=== PATIENT | male | born 1965 | race Caucasian/White ===

== ENCOUNTER 2019-12-28 19:56 | Emergency (ER) | payer BC, OTHER ==
[2019-12-28] MEDS: GI Cocktail Oral Solution 30 ML PO ONE (20:06)
[2019-12-28] MEDS: cloNIDine 0.1 MG Tab PO ONE (20:06)
[2019-12-28 20:43] LABS: CHLORIDE,CL 105 mmol/L (98-107); SODIUM,NA 141 mmol/L (136-145)
--- NOTE | 2019-12-28 21:14 | EDM.PDOC ---
ED HPI GENERAL MEDICAL PROBLEM - General Chief Complaint: General Stated Complaint: indigestion, HTN Time Seen by Provider: 12/28/19 20:00 Source of Information: Reports: Patient History Limitations: Reports: No Limitations - History of Present Illness INITIAL COMMENTS - FREE TEXT/NARRATIVE: Pt presents to ER with elevated BP and heartburn symptoms BP was 180/120 earlier Did take a second dose of Lisinopril No chest pain No SOB No cough No fever Onset: Gradual Duration: Day(s): Location: Reports: Chest Quality: Reports: Dull, Pressure Upper Epigastric Pain Score (Numeric/FACES): 4 - Related Data Allergies Allergy/AdvReac Type Severity Reaction Status Date / Time No Known Allergies Allergy Verified 12/28/19 20:06 Home Meds: Home Meds Lisinopril 20 mg PO DAILY 01/30/18 [History] Past Medical History Cardiovascular History: Reports: Hypertension Social & Family History - Tobacco Use Smoking Status *Q: Never Smoker Second Hand Smoke Exposure: No - Caffeine Use Caffeine Use: Reports: None - Recreational Drug Use Recreational Drug Use: No ED ROS GENERAL - Review of Systems Review Of Systems: See Below Constitutional: Reports: No Symptoms Respiratory: Reports: No Symptoms Cardiovascular: Reports: Chest Pain Musculoskeletal: Reports: No Symptoms ED EXAM, GENERAL - Physical Exam Exam: See Below Exam Limited By: No Limitations General Appearance: Alert, WD/WN, No Apparent Distress Neck: Supple Respiratory/Chest: Lungs Clear Cardiovascular: Regular Rate, Rhythm GI/Abdominal: Non-Tender EKG INTERPRETATION Rhythm: NSR Course - Vital Signs Last Recorded V/S: Last Vital Signs Temp 97.6 F 12/28/19 20:07 Pulse 86 12/28/19 20:07 Resp 12 12/28/19 20:07 BP 155/97 H 12/28/19 20:47 Pulse Ox 100 12/28/19 20:07 - Orders/Labs/Meds Orders: Active Orders 24 hr Category Date Time Status EKG Documentation Completion [RC] ASDIRECTED Care 12/28/19 20:51 Active EKG 12 Lead [EK] Stat Ther 12/28/19 20:51 Ordered Labs: Laboratory Tests 12/28/19 12/28/19 Range/Units 20:10 20:15 WBC 6.3 (4.0-10.2) K/uL RBC 4.66 (4.33-5.41) M/uL Hgb 14.4 (13.1-16.8) g/dL Hct 41.9 (39.0-49.0) % MCV 89.9 (84.0-98.0) fL MCH 30.9 (28.2-33.3) pg MCHC 34.4 (31.7-36.0) g/dL RDW 12.1 (11.2-14.1) % Plt Count 223 (150-350) K/uL Neut % (Auto) 58.2 (45.0-80.0) % Lymph % (Auto) 30.5 (10.0-50.0) % Angelina % (Auto) 9.5 (2.0-14.0) % Eos % (Auto) 1.6 (0.0-5.0) % Baso % (Auto) 0.2 (0.0-2.0) % Neut # (Auto) 3.67 (1.40-7.00) K/uL Lymph # (Auto) 1.92 (0.50-3.50) K/uL Angelina # (Auto) 0.60 (0.00-1.00) K/uL Eos # (Auto) 0.10 (0.00-0.50) K/uL Baso # (Auto) 0.01 (0.00-0.20) K/uL Sodium 141 (136-145) mmol/L Potassium 3.5 (3.5-5.1) mmol/L Chloride 105 (98-107) mmol/L Carbon Dioxide 26.4 (21.0-32.0) mmol/L BUN 23 H (7-18) mg/dL Creatinine 0.98 (0.51-1.17) mg/dL Est Cr Clr Drug Dosing 91.78 mL/min Estimated GFR (MDRD) > 60 mL/min Glucose 132 H (74-106) mg/dL Calcium 8.8 (8.5-10.1) mg/dL Total Bilirubin 0.4 (0.2-1.0) mg/dL AST 39 H (15-37) U/L ALT 64 (12-78) U/L Alkaline Phosphatase 52 (46-116) IU/L Total Protein 7.7 (6.4-8.2) g/dL Albumin 4.0 (3.4-5.0) g/dL Meds: Medications Discontinued Medications Generic Name Dose Route Start Last Admin Trade Name Lenora PRN Reason Stop Dose Admin Al Hydroxide/Mg Hydroxide 30 ml 12/28/19 20:03 12/28/19 20:06 Gi Cocktail PO 12/28/19 20:04 30 ml ONETIME ONE Administration Clonidine HCl 0.1 mg 12/28/19 20:02 12/28/19 20:06 Catapres PO 12/28/19 20:03 0.1 mg ONETIME ONE Administration - Re-Assessments/Exams Free Text/Narrative Re-Assessment/Exam: 12/28/19 21:14 See lab and EKG BP 155/95 Pt stable in ER Will follow up in clinic in AM Departure - Departure Time of Disposition: 21:15 Disposition: Home, Self-Care 01 Clinical Impression: HTN (hypertension) Qualifiers: Hypertension type: essential hypertension Qualified Code(s): I10 - Essential (primary) hypertension - Discharge Information *PRESCRIPTION DRUG MONITORING PROGRAM REVIEWED*: Not Applicable *COPY OF PRESCRIPTION DRUG MONITORING REPORT IN PATIENT VIVIENNE: Not Applicable Referrals: Reji Cordero MD [Primary Care Provider] - Additional Instructions: Follow up in clinic in AM Sepsis Event Note (ED) - Evaluation Sepsis Screening Result: No Definite Risk - Focused Exam Vital Signs: Vital Signs Temp Pulse Resp BP BP Pulse Ox 12/28/19 20:47 155/97 H 12/28/19 20:07 97.6 F 86 12 176/106 H 100 12/28/19 20:06 176/106 H - My Orders Last 24 Hours: My Active Orders 12/28/19 20:51 EKG Documentation Completion [RC] ASDIRECTED EKG 12 Lead [EK] Stat - Assessment/Plan Last 24 Hours: My Active Orders 12/28/19 20:51 EKG Documentation Completion [RC] ASDIRECTED EKG 12 Lead [EK] Stat
== END 2019-12-28 21:20 | disposition home or self-care (01) ==
LOC: LL.ED 19:56
DX: I10 Essential (primary) hypertension (principal); Z79.899 Other long term (current) drug therapy
CPT/HCPCS: 36415; 80053; 85025; 93005; 99283; A9270